=== PATIENT | male | born 1955 | race Caucasian/White ===

== ENCOUNTER → 2018-09-14 | Outpatient (CLI) | payer OTHER ==
[~2018-09-14] VITALS: Ht 177.8 cm; Wt 96.2 kg
[~2018-09-14] MED LIST: ADENOSINE 81 MG in GIVE UN-DILUTED 0 ML IV ONE; ADENOSINE 90 MG/30 ML INJ IV ONE; CARV6.2551 PO; DOXA4TAB40 PO; DULO30CA2 PO; FLU05NSL; FUR40T PO; LIS10T PO; OXC300T PO; POT10T PO; TAMS0.4C36 PO; WARF2.5T39 PO; WARF4TAB33 PO
== END | disposition home or self-care (01) ==
LOC: Rad HDHVI 08:05
PROVIDERS: ATTEND Internal Medicine Cardiovascular Disease
DX: I25.5 Ischemic cardiomyopathy (principal); E78.5 Hyperlipidemia, unspecified; I11.0 Hypertensive heart disease with heart failure; I50.23 Acute on chronic systolic (congestive) heart failure; I20.0 Unstable angina; R94.31 Abnormal electrocardiogram [ECG] [EKG]
CPT/HCPCS: 78452; 93005; 96374; 96375; A9500; J0153

== ENCOUNTER → 2019-02-09 | Outpatient (CLI) | payer OTHER ==
[~2019-02-09] MED LIST changes: -ADENOSINE 81 MG in GIVE UN-DILUTED 0 ML IV ONE; -ADENOSINE 90 MG/30 ML INJ IV ONE; -DOXA4TAB40 PO; +DOXA4TAB5 PO
== END | disposition home or self-care (01) ==
LOC: CT 10:06
DX: M48.02 Spinal stenosis, cervical region (principal); M50.20 Other cervical disc displacement, unspecified cervical region; M25.78 Osteophyte, vertebrae; M12.88 Other specific arthropathies, not elsewhere classified, other specified site
CPT/HCPCS: 72125

== ENCOUNTER → 2019-04-09 | Day surgery (SDC) | payer OTHER ==
[~2019-04-09] VITALS: Ht 177.8 cm; Wt 96.2 kg
[~2019-04-09] MED LIST changes: +ALBUAER3 IN; +CARV25TA55 PO; +DIP005TP TOP; +DULO60CA PO; +FINA5TAB4 PO; +FLUMAZENIL 0.1 MG/ML INJ 10ML MDV IV ONE; +FURO20TA3 PO; +HYDR39SU2 RE; +MOME100A INH; +NALOXONE HCL 0.4 MG/ML VIAL ONE; +NITR0.4S29 SL; +SACU1TAB7 PO; +SIME1CHW14 PO; +SODIUM CHLORIDE LOCK 10 ML ONE; +WARF1TAB36 PO; +diphenhdrAMINE HCL 50 MG/1 ML VL ONE; +hydrALAZINE HCL 20 MG/ML VL ONE
[2019-04-09 07:42] LABS: Basophils # (auto) 0.1 uL; Basophils % (auto) 1.4 % (0.0-2.0); Eosinophils # (auto) 0.1 uL; Eosinophils % (auto) 1.5 % (0.0-7.0); Hematocrit 39.9 % (41.0-53.0); Hemoglobin 13.8 g/dL (13.5-17.5); Lymphocytes # (auto) 1.2 uL; Lymphocytes % (auto) 29.4 % (10.0-50.0); Mean Corpuscular Hemoglobin 32.3 pg (28.0-32.0); Mean Corpuscular Hgb Conc. 34.6 g/dL (32.0-36.0); Mean Corpuscular Volume 93.3 fL (80.0-100.0); Monocytes # (auto) 0.4 uL; Monocytes % (auto) 11.1 % (0.0-12.0); Neutrophils # (auto) 2.3 uL; Neutrophils % (auto) 56.6 % (37.0-80.0); Nucleated Red Blood Cells % 0.2 %; Platelet Count (auto) 198 10^3/uL (140-450); Red Blood Cells 4.28 10^6/uL (4.5-5.90)
[2019-04-09 07:53] LABS: INR 1.09 (0.9-1.15); Partial Thromboplastin Time 29.6 sec (23.64-32.05)
[2019-04-09] MEDS: fentaNYL CITRATE 100 MCG/2 ML VL ONE ×2 (09:49→09:52)
[2019-04-09] MEDS: MIDAZOLAM HCL 5 MG/ML-1ML VIAL ONE ×2 (09:49→09:52)
[2019-04-09 10:44] VITALS: BP 150/92
== END | disposition home or self-care (01) ==
LOC: GI 06:42
PROVIDERS: ATTEND Internal Medicine Gastroenterology
DX: K62.5 Hemorrhage of anus and rectum (principal); K64.8 Other hemorrhoids; J44.9 Chronic obstructive pulmonary disease, unspecified; I11.0 Hypertensive heart disease with heart failure; I50.9 Heart failure, unspecified; Z95.810 Presence of automatic (implantable) cardiac defibrillator; Z95.2 Presence of prosthetic heart valve; Z79.899 Other long term (current) drug therapy; Z87.891 Personal history of nicotine dependence
CPT/HCPCS: 36415; 45378; 85025; 85610; 85730; J0360; J1200; J2250; J3010; J7030; 99152; 99153

== ENCOUNTER 2019-05-06 07:05 | Day surgery (SDC) | payer OTHER ==
[~2019-05-06] VITALS: Ht 177.8 cm; Wt 96.2 kg
[~2019-05-06 07:05] MED LIST changes: -CARV6.2551 PO; -DOXA4TAB5 PO; -DULO30CA2 PO; -FINA5TAB4 PO; -FLUMAZENIL 0.1 MG/ML INJ 10ML MDV IV ONE; -FUR40T PO; -LIS10T PO; -NALOXONE HCL 0.4 MG/ML VIAL ONE; -POT10T PO; -SODIUM CHLORIDE LOCK 10 ML ONE; -TAMS0.4C36 PO; -WARF2.5T39 PO; -WARF4TAB33 PO; -diphenhdrAMINE HCL 50 MG/1 ML VL ONE; -hydrALAZINE HCL 20 MG/ML VL ONE
[2019-05-06] MEDS ORDERED: LIDOCAINE 2%HCL (LOCAL ANESTH.) INJ 20ML MDV ONE ×2 (07:25→10:23)
[2019-05-06] MEDS ORDERED: IOHEXOL 350 MG/ML 100ML IJ ONE ×3 (07:25→10:23)
[2019-05-06 07:56] LABS: Basophils # (auto) 0 uL; Basophils % (auto) 1.3 % (0.0-2.0); Eosinophils # (auto) 0.1 uL; Hematocrit 38.2 % (41.0-53.0); Hemoglobin 12.9 g/dL (13.5-17.5); Lymphocytes # (auto) 1.1 uL; Lymphocytes % (auto) 32.8 % (10.0-50.0); Mean Corpuscular Hemoglobin 32.1 pg (28.0-32.0); Mean Corpuscular Hgb Conc. 33.8 g/dL (32.0-36.0); Mean Corpuscular Volume 94.9 fL (80.0-100.0); Monocytes # (auto) 0.4 uL; Neutrophils # (auto) 1.7 uL; Neutrophils % (auto) 50.9 % (37.0-80.0); Nucleated Red Blood Cells % 0.1 %; Platelet Count (auto) 232 10^3/uL (140-450); Red Blood Cells 4.03 10^6/uL (4.5-5.90); Red Cell Distribution Width 14.7 % (11.8-14.3); White Blood Cell 3.3 10^3/uL (4.4-10.8)
[2019-05-06 08:12] LABS: INR 1.08 (0.9-1.15)
[2019-05-06 08:13] LABS: BUN/Creatinine Ratio 13.1; Calcium 8.6 mg/dL (8.5-10.1); Potassium 3.9 mmol/L (3.5-5.1)
[2019-05-06] MEDS ORDERED: ANGIOMAX 250 MG VIAL IV ONE ×2 (08:47→10:34)
[2019-05-06] MEDS ORDERED: MIDAZOLAM HCL 1MG/1ML-2 ML VIAL ONE (08:48)
[2019-05-06] MEDS ORDERED: SODIUM CHL 0.9% 50 ML ONE ×2 (08:48→10:34)
[2019-05-06] MEDS ORDERED: fentaNYL CITRATE 100 MCG/2 ML VL ONE (08:48)
[2019-05-06] MEDS ORDERED: ACETAMINOPHEN 500 MG TAB PO PRN (11:15)
== END 2019-05-06 12:56 | disposition home or self-care (01) ==
LOC: CATH 07:05
PROVIDERS: ATTEND Internal Medicine Cardiovascular Disease
DX: I42.0 Dilated cardiomyopathy (principal); I11.0 Hypertensive heart disease with heart failure; I50.9 Heart failure, unspecified; J44.9 Chronic obstructive pulmonary disease, unspecified; Z95.810 Presence of automatic (implantable) cardiac defibrillator; Z79.01 Long term (current) use of anticoagulants; Z79.899 Other long term (current) drug therapy
CPT/HCPCS: 36415; 71045; 80048; 85025; 85610; 93458; C1760; C1894; J0583; J1644; J2250; J3010; J7030; Q9967; 99152; 99153

== ENCOUNTER → 2019-09-15 | Outpatient (CLI) | payer OTHER ==
[~2019-09-15] MED LIST changes: +IOHEXOL 300 MG/ML 100ML BOTTLE IJ ONE
[2019-09-15 09:06] LABS: BUN/Creatinine Ratio 12.4; Potassium 4.8 mmol/L (3.5-5.1)
== END | disposition home or self-care (01) ==
LOC: CT 08:06
DX: I51.7 Cardiomegaly (principal); J90 Pleural effusion, not elsewhere classified; J44.9 Chronic obstructive pulmonary disease, unspecified
CPT/HCPCS: 36415; 71275; 80048; Q9967

== ENCOUNTER 2019-12-14 16:47 | Inpatient (IN) | payer OTHER ==
[~2019-12-14] VITALS: Ht 177.8 cm; Wt 105.1 kg
[~2019-12-14 16:47] MED LIST changes: -IOHEXOL 300 MG/ML 100ML BOTTLE IJ ONE
[2019-12-14] MEDS ORDERED: SODIUM CHLORIDE 0.9% 1,000 ML IVB ONE (17:47)
[2019-12-14] MEDS ORDERED: MORPHINE SULFATE 4 MG/ML SYR/VIAL IV ONE (18:00)
[2019-12-14] MEDS ORDERED: ONDANSETRON HCL 4 MG/2 ML VIAL IV ONE (18:00)
[2019-12-14 19:52] LABS: White Blood Cell 4.1 10^3/uL (4.4-10.8)
[2019-12-14 19:53] LABS: Red Blood Cells 4.48 10^6/uL (4.5-5.90)
[2019-12-14 19:54] LABS: Hematocrit 43.6 % (41.0-53.0); Hemoglobin 14.8 g/dL (13.5-17.5); Mean Corpuscular Hgb Conc. 33.9 g/dL (32.0-36.0); Mean Corpuscular Volume 97.3 fL (80.0-100.0); Platelet Count (auto) 170 10^3/uL (140-450); Red Cell Distribution Width 14.5 % (11.8-14.3)
[2019-12-14 19:56] LABS: Band Neutrophils % (manual) 0; Basophils % (manual) 0 (0.0-2.0); Blast Cells 0; Eosinophils % (manual) 0 (0-7); Metamyelocytes % 0; Myelocytes % 0; Promyelocytes % 0; Reactive Lymphocytes 0
[2019-12-14 19:58] LABS: Albumin 3.9 g/dL (3.4-5.0); Calcium 8.9 mg/dL (8.5-10.1); Potassium 4.5 mmol/L (3.5-5.1)
[2019-12-14 20:01] LABS: BUN/Creatinine Ratio 11.3
[2019-12-14 20:04] LABS: Bilirubin, Total 0.4 mg/dL (0.2-1.0); Total Protein 8.9 g/dL (6.4-8.2)
[2019-12-14 20:59] LABS: Lymphocytes % (manual) 32 (10.0-50.0); Monocytes % (manual) 16 (0-12)
[2019-12-14] MEDS ORDERED: ONDANSETRON HCL 4 MG/2 ML VIAL IV PRN (21:45)
[2019-12-14] MEDS ORDERED: HYDROcodone-ACET 10/325MG TAB PO PRN (21:45)
[2019-12-14] MEDS ORDERED: ALBUTEROL SULF HFA 90MCG INH 200DOSE IN PRN (21:45)
[2019-12-14] MEDS ORDERED: WARFARIN SODIUM 2 MG TAB PO SCH (22:30)
[2019-12-14 22:44] LABS: INR 1.04 (0.9-1.15); Partial Thromboplastin Time 32.9 sec (23.0-31.2)
[2019-12-14] MEDS ORDERED: ALBUTEROL SULF 2.5 MG/0.5ML(0.5%) NEB SOLN NEB PRN (23:15)
[2019-12-14] MEDS: SACUBITRIL-VALSARTAN 24mg/26mg TAB PO SCH (23:59)
[2019-12-14] MEDS: OXcarbazepine 300 MG TAB PO SCH (23:59)
[2019-12-14] MEDS: DULoxetine HCL 30 MG CAP PO SCH (23:59)
[2019-12-14] MEDS: PANTOPRAZOLE 40 MG/10 ML VIAL INJ IV SCH (23:59)
[2019-12-15] VITALS (8 sets, daily range): BP systolic 112–150; BP diastolic 66–90
[2019-12-15] MEDS: CARVEDILOL 12.5 MG TAB PO SCH ×3 (00:09→22:15)
--- NOTE | 2019-12-15 01:45 | NUR ---
pt assessment and intake performed at this time. v/s WNL. pt in no distress at this time, covid nasal swab performed and sent to lab.
--- NOTE | 2019-12-15 02:31 | NUR ---
Admitting note pt arrived to room at 0105, no report given to this nurse from any department of hospital. pt arrived in wheel chair with [facility] staff at his side x2. pt is AAOx4, to person, place, time and situation. pt shows no s/s of distress at time of admission. bed in lowest and locked position with rails up x2. pt requesting to eat, brought pt a clear jello and apple juice, per the diet order in place. will continue to monitor pt Q1H and t/o shift/PRN. pt oriented to use of call light for assistance and verbally agrees to do so.
[2019-12-15] MEDS: D5W/SOD CHL 0.45% 1,000 ML IV SCH ×4 (03:52→17:45)
[2019-12-15 06:04] LABS: Basophils # (auto) 0 10 ^3/uL (0-0.2); Basophils % (auto) 0.7 % (0.0-2.0); Eosinophils # (auto) 0 10 ^3/uL (0-0.8); Hematocrit 37.7 % (41.0-53.0); Hemoglobin 12.8 g/dL (13.5-17.5); Lymphocytes # (auto) 0.9 10 ^3/uL (0.4-5.4); Lymphocytes % (auto) 32.5 % (10.0-50.0); Mean Corpuscular Hemoglobin 33.2 pg (28.0-32.0); Mean Corpuscular Hgb Conc. 33.9 g/dL (32.0-36.0); Monocytes # (auto) 0.4 10 ^3/uL (0-1.3); Monocytes % (auto) 14.2 % (0.0-12.0); Neutrophils # (auto) 1.5 10 ^3/uL (1.6-8.6); Neutrophils % (auto) 52.6 % (37.0-80.0); Nucleated Red Blood Cells % 0.5 %; Platelet Count (auto) 141 10^3/uL (140-450); Red Blood Cells 3.85 10^6/uL (4.5-5.90); Red Cell Distribution Width 14.6 % (11.8-14.3); White Blood Cell 2.8 10^3/uL (4.4-10.8)
[2019-12-15 06:12] LABS: Albumin 2.9 g/dL (3.4-5.0); Calcium 7.5 mg/dL (8.5-10.1); INR 1.09 (0.9-1.15); Potassium 3.8 mmol/L (3.5-5.1)
[2019-12-15 06:16] LABS: BUN/Creatinine Ratio 13.6; Bilirubin, Total 0.2 mg/dL (0.2-1.0); Total Protein 6.8 g/dL (6.4-8.2)
--- NOTE | 2019-12-15 06:26 | NUR ---
pt asleep, resting comfortably in bed. no s/s of distress or pain noted at this time. proson staff at bedside of pt t/o shift. will continue to monitor Q1H and PRN
--- NOTE | 2019-12-15 07:17 | NUR ---
End of shift Report given to day shift RNDeb. notified RN of morning labs.
[2019-12-15] MEDS: SACUBITRIL-VALSARTAN 24mg/26mg TAB PO SCH ×3 (10:00→22:15)
[2019-12-15] MEDS: OXcarbazepine 300 MG TAB PO SCH ×2 (10:00→22:16)
[2019-12-15] MEDS: PANTOPRAZOLE 40 MG/10 ML VIAL INJ IV SCH ×2 (10:10→22:13)
--- NOTE | 2019-12-15 10:50 | NUR ---
Respiratory note: PT ASSESSED FOR PRN MN TX. HR 72, RR 18, POX 98% ON 2L NC, BS ARE CLEAR/DIMINISHED. NO SOB OR DISTRESS NOTED. PT WAS NOTIFY TO HAVE RN PAGED IF MN TX WAS NEEDED.
[2019-12-15] MEDS: HYDROcodone-ACET 10/325MG TAB PO PRN ×2 (10:56→18:44)
[2019-12-15] MEDS ORDERED: WARFARIN SODIUM 2.5 MG TAB PO ONE (17:00)
[2019-12-15] MEDS: WARFARIN SODIUM 2 MG TAB PO SCH (17:00)
[2019-12-15] MEDS: WARFARIN SODIUM 5 MG TAB PO SCH (17:00)
--- NOTE | 2019-12-15 18:45 | NUR ---
Spoke to MD MD Donaldson aware of patient's status including abd pain. Patient states he does not take coumadin anymore and refused at this time. Awaiting further orders at this time. Will cont care
--- NOTE | 2019-12-15 19:09 | NUR ---
Patient care endorsed endorsed care to Carlene rn, patient laying in bed in no acute distress or sob. Guards at bedside.
--- NOTE | 2019-12-15 19:29 | NUR ---
RT NOTE PT WAS SEEN BY RT FOR PRN HHN TX ASSESSMENT. PT STATES NO TREATMENT NEEDED AT THIS TIME. HR 71, RR 16, BS CLEAR/DIM, POX 93% ON 1L NASAL CANNULA AND APPEARS TO TOLERATE WELL. CONT ORDERED Addendum: 12/15/19 at 2339 by Kailyn Muse RT Amended: Links added.
[2019-12-15] MEDS: PIPERACILLIN-TAZO 4.5GM 100 ML IV SCH (22:14)
[2019-12-15] MEDS: DULoxetine HCL 30 MG CAP PO SCH (22:15)
[2019-12-16] MEDS: D5W/SOD CHL 0.45% 1,000 ML IV SCH ×3 (04:24→13:45)
[2019-12-16 04:57] VITALS: BP 90/57
[2019-12-16] MEDS: HYDROcodone-ACET 10/325MG TAB PO PRN ×3 (05:28→19:46)
[2019-12-16] MEDS: PIPERACILLIN-TAZO 4.5GM 100 ML IV SCH ×4 (05:54→23:01)
[2019-12-16 06:13] LABS: Urine Bacteria NONE SEEN /hpf (None Seen); Urine Blood Negative /uL (Negative); Urine Specific Gravity 1.024 (1.001-1.035); Urine WBC <1 /hpf (0 - 3)
[2019-12-16 07:02] LABS: Basophils # (auto) 0 10 ^3/uL (0-0.2); Basophils % (auto) 0.5 % (0.0-2.0); Eosinophils # (auto) 0 10 ^3/uL (0-0.8); Eosinophils % (auto) 0.1 % (0.0-7.0); Hematocrit 42.2 % (41.0-53.0); Lymphocytes % (auto) 36.1 % (10.0-50.0); Mean Corpuscular Hemoglobin 32.9 pg (28.0-32.0); Mean Corpuscular Hgb Conc. 33.1 g/dL (32.0-36.0); Mean Corpuscular Volume 99.6 fL (80.0-100.0); Monocytes # (auto) 0.4 10 ^3/uL (0-1.3); Monocytes % (auto) 12.7 % (0.0-12.0); Neutrophils # (auto) 1.4 10 ^3/uL (1.6-8.6); Neutrophils % (auto) 50.6 % (37.0-80.0); Nucleated Red Blood Cells % 0.6 %; Platelet Count (auto) 133 10^3/uL (140-450); Red Blood Cells 4.24 10^6/uL (4.5-5.90); Red Cell Distribution Width 14.4 % (11.8-14.3); White Blood Cell 2.9 10^3/uL (4.4-10.8)
[2019-12-16 07:16] LABS: INR 1.03 (0.9-1.15)
--- NOTE | 2019-12-16 07:30 | NUR ---
Opening shift note Assumed care of patient from NOC RN. Patient is AOx4 no s/s of distress or shortness of breath noted. Bed is in lowest locked position, side rails up x2, call light is within reach, and 2 guards are present at bedside. Updated patient on plan of care and patient verbalized understanding. Will continue to monitor qh1r and PRN.
[2019-12-16 08:58] VITALS: BP 119/58
--- NOTE | 2019-12-16 09:20 | NUR ---
Patient back on unit VS Vitals are 82/49, 95% on 3L via nasal cannula and 68bpm. Patient is diaphoretic, SOB. Vitals at 0925 82/49, 95% on 3L via nasal cannula and 68bpm Blood sugar was 123. Patient is AOx4, complaint of SOB. Legs were elevated and placed on IV fluids. Will continue to monitor.
--- NOTE | 2019-12-16 09:49 | NUR ---
Paged attending Paged Dr. Monreal regarding change in patient status. Left call back message and awaiting call back.
[2019-12-16] MEDS: SACUBITRIL-VALSARTAN 24mg/26mg TAB PO SCH ×3 (10:00→23:02)
[2019-12-16] MEDS: CARVEDILOL 12.5 MG TAB PO SCH ×2 (10:00→23:02)
[2019-12-16] MEDS: PANTOPRAZOLE 40 MG/10 ML VIAL INJ IV SCH ×2 (10:55→23:01)
[2019-12-16] MEDS: OXcarbazepine 300 MG TAB PO SCH ×2 (10:57→23:02)
--- NOTE | 2019-12-16 12:35 | NUR ---
Paged Pagemichael Monreal regarding change in patient status. Left message with MDs exchange. Awaiting call back.
--- NOTE | 2019-12-16 12:54 | NUR ---
Physician rounding Dr. Monreal at nurses station, updated MD on patient status. No new orders received at this time. Will continue to monitor.
[2019-12-16 13:00] VITALS: BP 116/59
--- NOTE | 2019-12-16 15:13 | NUR ---
report given to receiving RN YESENIA Allyson at lunch, report given to YESENIA Spaulding.
--- NOTE | 2019-12-16 16:00 | NUR ---
Patient taken to [facility] for COVID care, no s/s of distress noted at time of transfer.
--- NOTE | 2019-12-16 16:00 | NUR ---
PT ARRIVED FROM [facility] VIA HOSPITAL BED WITH DRAKE PATTERSON, AND A CONSTRUCTION PERSON, PT IS ALERT ORIENTED X4, RESTING IN BED COMFORTABLY, A METAL HAND CUFF NOTED AT LEFT WRIEST, LARGE FIRM ABDOMEN WITH HYPO ABDOMINAL SOUNDS, PT IS BIG AND TALL, ABLE TO SELF REPOSITION NEEDED, PT IS FULLY AWARE THAT HE IS POSITIVE FOR COVID 19 AND CONTACT ISOLATION PRACTICE WILL BE IN PRACTICE AT ALL TIMES, ZOSYN INTRAVENOUS CONTINUE INFUSING, ROOM ORIENTATION GIVEN TO PT, CALL LIGHT WITHIN REACH.
[2019-12-16 17:00] VITALS: BP 94/56
[2019-12-16] MEDS ORDERED: WARFARIN SODIUM 2 MG TAB PO SCH (17:00)
[2019-12-16] MEDS ORDERED: WARFARIN SODIUM 2.5 MG TAB PO SCH (17:00)
--- NOTE | 2019-12-16 18:41 | NUR ---
PT CONTINUE STABLE, CONTINUE MONITORING, SITTING UP EATING DINNER
--- NOTE | 2019-12-16 19:30 | NUR ---
Opening Shift Note Assumed care of patient, awake and alert. No S/S of distress/SOB or pain. Guards at bedside. Instructed on POC and to call for assist PRN, will continue to monitor for changes Q1hr and PRN.
[2019-12-16 22:00] VITALS: BP 129/70
--- NOTE | 2019-12-16 22:00 | NUR ---
Patient requested to take a shower. Patient provided towels and gown, IV wrapped, and linens changed. Medication will be given after showering.
--- NOTE | 2019-12-16 22:31 | NUR ---
Respiratory note: ASSESSED PT FOR PRN MED NEB AT THIS TIME, NO RESP DISTRESS NOTED, NO TX INDICATED, PULSE OX 91% ON RA, HR 87, RR 18
[2019-12-16] MEDS: DULoxetine HCL 30 MG CAP PO SCH (23:01)
[2019-12-16] MEDS: methylPREDNISolone SOD SUCC 125 MG/2 ML VL IV SCH (23:01)
[2019-12-17] MEDS: D5W/SOD CHL 0.45% 1,000 ML IV SCH ×4 (00:30→17:09)
[2019-12-17] MEDS: HYDROcodone-ACET 10/325MG TAB PO PRN ×3 (04:06→18:05)
[2019-12-17 05:00] VITALS: BP 102/69
[2019-12-17] MEDS: PIPERACILLIN-TAZO 4.5GM 100 ML IV SCH ×3 (05:42→21:39)
--- NOTE | 2019-12-17 08:04 | NUR ---
OPENING SHIFT NOTE Assumed care of patient. PT is awake and a&ox4. No SOB or s/s of distress at this time. Guards are at bedside. Instructed on plan of care and encouraged patient to call for assistance as needed, patient verbalized understanding. Bed is locked in lowest position, side rails x 2 are up, call light is within reach, and bed alarm is on.
[2019-12-17 08:59] LABS: INR 1.08 (0.9-1.15)
[2019-12-17 09:00] VITALS: BP 94/70
[2019-12-17] MEDS: SACUBITRIL-VALSARTAN 24mg/26mg TAB PO SCH ×2 (10:00→21:40)
[2019-12-17] MEDS: CARVEDILOL 12.5 MG TAB PO SCH ×2 (10:00→21:40)
[2019-12-17] MEDS: methylPREDNISolone SOD SUCC 125 MG/2 ML VL IV SCH ×2 (10:51→21:39)
[2019-12-17] MEDS: PANTOPRAZOLE 40 MG/10 ML VIAL INJ IV SCH ×2 (10:51→21:39)
[2019-12-17] MEDS: cefTRIAXone 1GM/50ML D5W 50 ML IV SCH (10:52)
[2019-12-17] MEDS: AZITHROMYCIN 250 MG TAB PO SCH (10:52)
[2019-12-17] MEDS: OXcarbazepine 300 MG TAB PO SCH ×2 (10:54→21:40)
[2019-12-17] MEDS: ZINC SULFATE 220mg CAP or TAB PO SCH (10:55)
[2019-12-17 13:00] VITALS: BP 118/60
--- NOTE | 2019-12-17 14:48 | NUR ---
Nutrition Assessment Notes please see attached link for complete assessment Est energy needs ABW 92 [id number] kcal (23-25kcal/kg ABW) Est protein needs: 92-101g (1-1.1g/kg ABW) Will reassess prn. Addendum: 12/17/19 at [address] Amended: Links added.
[2019-12-17 17:00] VITALS: BP 124/90
[2019-12-17] MEDS: WARFARIN SODIUM 2 MG TAB PO SCH (17:10)
[2019-12-17] MEDS: WARFARIN SODIUM 5 MG TAB PO SCH (17:10)
--- NOTE | 2019-12-17 18:07 | NUR ---
ROUNDED ON PT. INSTRUCTED TO KEEP PT ON RA. INSTRUCTED PT TO NOTIFY STAFF OF ANY S/S OF SOB. WILL CONTINUE TO MONITOR.
[2019-12-17] MEDS: APIXABAN 2.5 MG TAB PO SCH (18:19)
--- NOTE | 2019-12-17 18:19 | NUR ---
ADMINISTERED PM ELIQUIS PER MD INSTRUCTIONS. COUMADIN DISCONTINUED.
--- NOTE | 2019-12-17 19:18 | NUR ---
Respiratory note: PT RECEIVED ON RA AT THIS TIME. NO RESP DISTRESS NOTED. PRN TX NOT INDICATED. SPO2 92%, HR 71, RR 18. PT IS AWARE TO CALL FOR PRN IF SOB/WHEEZING.
--- NOTE | 2019-12-17 20:20 | NUR ---
open note assumed care of pt upon entering room pt awake, alert and oriented x4. pt on room air no distress noted or expressed. pt has guards at bedside. pt oriented to this nurse, pt updated on plan of care. bed locked, low and 2x rails up. call light in reach, pt encouraged to call as needed. this nurse will continue to monitor.
[2019-12-17] MEDS: DULoxetine HCL 30 MG CAP PO SCH (21:39)
[2019-12-17 21:42] VITALS: BP 115/74
[2019-12-18] VITALS (7 sets, daily range): BP systolic 100–138; BP diastolic 66–82
[2019-12-18] MEDS: HYDROcodone-ACET 10/325MG TAB PO PRN ×3 (01:09→23:07)
[2019-12-18] MEDS: D5W/SOD CHL 0.45% 1,000 ML IV SCH ×4 (02:01→23:03)
[2019-12-18] MEDS: PIPERACILLIN-TAZO 4.5GM 100 ML IV SCH ×3 (06:23→23:04)
--- NOTE | 2019-12-18 08:52 | NUR ---
pt. assessed, no resp. distress or sob noted. Bs. are clear, hr=62,rr=20,sp02=96% on ra. Addendum: 12/18/19 at 1600 by Felisha Santiago RT Amended: Links added.
[2019-12-18] MEDS: PANTOPRAZOLE 40 MG/10 ML VIAL INJ IV SCH ×2 (10:25→23:03)
[2019-12-18] MEDS: APIXABAN 2.5 MG TAB PO SCH ×2 (10:25→23:06)
[2019-12-18] MEDS: ZINC SULFATE 220mg CAP or TAB PO SCH (10:25)
[2019-12-18] MEDS: OXcarbazepine 300 MG TAB PO SCH ×2 (10:25→22:00)
[2019-12-18] MEDS: methylPREDNISolone SOD SUCC 125 MG/2 ML VL IV SCH ×2 (10:25→23:03)
[2019-12-18] MEDS: cefTRIAXone 1GM/50ML D5W 50 ML IV SCH (10:25)
[2019-12-18] MEDS: AZITHROMYCIN 250 MG TAB PO SCH (10:26)
[2019-12-18] MEDS: SACUBITRIL-VALSARTAN 24mg/26mg TAB PO SCH ×2 (10:26→23:06)
[2019-12-18] MEDS: CARVEDILOL 12.5 MG TAB PO SCH ×2 (10:27→23:05)
[2019-12-18] MEDS: DULoxetine HCL 30 MG CAP PO SCH (23:05)
[2019-12-18] MEDS: ASCORBIC ACID 500 MG TAB PO SCH (23:07)
[2019-12-19] MEDS: D5W/SOD CHL 0.45% 1,000 ML IV SCH ×4 (03:12→21:54)
[2019-12-19 05:30] VITALS: BP 137/82
[2019-12-19] MEDS: PIPERACILLIN-TAZO 4.5GM 100 ML IV SCH ×3 (06:31→21:55)
[2019-12-19] MEDS: HYDROcodone-ACET 10/325MG TAB PO PRN ×3 (06:32→21:57)
--- NOTE | 2019-12-19 07:25 | NUR ---
closing note. pt resting in semi fowlers with HOB at 30 degrees. respirations even and nonlabored on room air. no c/o pain or discomfort. endorsed care to day shift RN Will.
[2019-12-19 09:00] VITALS: BP 127/77
[2019-12-19] MEDS: cefTRIAXone 1GM/50ML D5W 50 ML IV SCH (10:43)
[2019-12-19] MEDS: PANTOPRAZOLE 40 MG/10 ML VIAL INJ IV SCH ×2 (10:43→21:54)
[2019-12-19] MEDS: methylPREDNISolone SOD SUCC 125 MG/2 ML VL IV SCH ×2 (10:43→21:54)
[2019-12-19] MEDS: AZITHROMYCIN 250 MG TAB PO SCH (10:45)
[2019-12-19] MEDS: ZINC SULFATE 220mg CAP or TAB PO SCH (10:45)
[2019-12-19] MEDS: CARVEDILOL 12.5 MG TAB PO SCH ×2 (10:45→21:55)
[2019-12-19] MEDS: APIXABAN 2.5 MG TAB PO SCH ×2 (10:46→21:56)
[2019-12-19] MEDS: CHOLECALCIFEROL (VITD3) 2,000 UNIT CAP PO SCH (10:46)
[2019-12-19] MEDS: ASCORBIC ACID 500 MG TAB PO SCH ×2 (10:46→21:56)
[2019-12-19] MEDS: SACUBITRIL-VALSARTAN 24mg/26mg TAB PO SCH ×2 (10:46→21:56)
[2019-12-19] MEDS: OXcarbazepine 300 MG TAB PO SCH ×2 (10:47→21:56)
[2019-12-19] MEDS: THIAMINE HCL 100 MG TAB PO SCH (10:47)
[2019-12-19 13:00] VITALS: BP 119/76
--- NOTE | 2019-12-19 14:57 | NUR ---
Nutrition Followup Note Wt 105.1kg Pt is covid positive in the COVID wing. PT has a regular diet with fair appetite aeb pt with avg po intake of 67% x 3 days per RN note. Est energy needs ABW 92 [id number] kcal (23-25kcal/kg ABW) Est protein needs: 92-101g (1-1.1g/kg ABW) Will reassess prn. Labs: Pt with no new labs since 12/14, BUN 20 H CREAT 1.47 H GLU 108 H CA 7.5 L ALB 2.9 L BM: Pt with 1 BM 12/18 per RN note Skin: BS 21 low risk, full details in [employer] note PES: Altered nutrition related lab vlaues r.t current chronic medical condition aeb elev RFT hyperglycemia, hypocalcemia mod hypoalb Decreased nutrient needs r/t adiposity aeb pt`s high BMI of 34.5 kg/m2 Comments 1) refer to [facility] dietitan on DC2) continue current plan of care Expected Outcomes/Goals: pt will have improved labs pt will consume >75% of meals f/u mod 3-5 days
[2019-12-19 16:37] VITALS: BP 130/78
[2019-12-19] MEDS ORDERED: WARFARIN SODIUM 2 MG TAB PO SCH (17:00)
[2019-12-19] MEDS ORDERED: WARFARIN SODIUM 2.5 MG TAB PO SCH (17:00)
[2019-12-19 21:37] VITALS: BP 136/91
[2019-12-19] MEDS: DULoxetine HCL 30 MG CAP PO SCH (21:55)
--- NOTE | 2019-12-19 22:00 | NUR ---
patient took shower.
--- NOTE | 2019-12-19 22:10 | NUR ---
IV leaking, removed. catheter remained whole upon removal. pt tolerated well.
--- NOTE | 2019-12-19 22:15 | NUR ---
New IV placed at right wrist 22g 1 attempt, pt tolerated well.
[2019-12-20 05:00] VITALS: BP 121/80
[2019-12-20] MEDS: D5W/SOD CHL 0.45% 1,000 ML IV SCH ×3 (05:26→17:45)
[2019-12-20] MEDS: PIPERACILLIN-TAZO 4.5GM 100 ML IV SCH ×2 (05:42→14:42)
--- NOTE | 2019-12-20 07:32 | NUR ---
closing note pt resting in semi fowlers with HOB at 30 degrees. no s/s of pain or discomfort. endorsed care to day shift RN.
--- NOTE | 2019-12-20 07:40 | NUR ---
opening note Assumed care of NOC RN. Patient is AOx4 no s/s of distress noted. Bed is in lowest locked position, side rails up x2, call light is within reach and guard at bedside. Updated patient on plan of care and patient verbalized understanding. Will continue to monitor q1hr and PRN.
[2019-12-20 08:00] VITALS: BP 136/90
[2019-12-20] MEDS: methylPREDNISolone SOD SUCC 125 MG/2 ML VL IV SCH (09:59)
[2019-12-20] MEDS: PANTOPRAZOLE 40 MG/10 ML VIAL INJ IV SCH (09:59)
[2019-12-20] MEDS: ZINC SULFATE 220mg CAP or TAB PO SCH (10:00)
[2019-12-20] MEDS: THIAMINE HCL 100 MG TAB PO SCH (10:01)
[2019-12-20] MEDS: CARVEDILOL 12.5 MG TAB PO SCH (10:01)
[2019-12-20] MEDS: APIXABAN 2.5 MG TAB PO SCH (10:01)
[2019-12-20] MEDS: OXcarbazepine 300 MG TAB PO SCH (10:02)
[2019-12-20] MEDS: SACUBITRIL-VALSARTAN 24mg/26mg TAB PO SCH (10:02)
[2019-12-20] MEDS: ASCORBIC ACID 500 MG TAB PO SCH (10:02)
[2019-12-20] MEDS: AZITHROMYCIN 250 MG TAB PO SCH (10:02)
[2019-12-20] MEDS: CHOLECALCIFEROL (VITD3) 2,000 UNIT CAP PO SCH (10:02)
[2019-12-20] MEDS: HYDROcodone-ACET 10/325MG TAB PO PRN (10:16)
[2019-12-20 12:00] VITALS: BP 155/98
--- NOTE | 2019-12-20 15:57 | NUR ---
patient requested to take shower, supplied patient with towels and new gown.
--- NOTE | 2019-12-20 16:40 | NUR ---
Physician rounding Dr. Monreal at nurses station. New orders received. Will follow thorough.
[2019-12-20 17:00] VITALS: BP 149/98
[2019-12-20 17:06] VITALS: BP 149/98
--- NOTE | 2019-12-20 18:15 | NUR ---
Discharge note Discharge instructions given as ordered. Encourage to follow up with senior care MD as instructed. All questions and concerns addressed. Patient verbalized understanding. IV removed with catheter intact, pressure dressing applied. Patient care endorsed to guards at bedside.
== END 2019-12-20 18:15 | DRG 177 ==
LOC: EEVIPCON 16:47 → ER 16:47 → OVERFLOW 16:48 → WEST WING 12-15 01:05 → EAST 12-16 16:57
PROVIDERS: ADMIT Internal Medicine; ATTEND Internal Medicine
DX: U07.1 COVID-19 (principal); J96.01 Acute respiratory failure with hypoxia; J98.11 Atelectasis; I42.9 Cardiomyopathy, unspecified; I50.9 Heart failure, unspecified; K59.00 Constipation, unspecified; E78.5 Hyperlipidemia, unspecified; I11.0 Hypertensive heart disease with heart failure; J44.9 Chronic obstructive pulmonary disease, unspecified; N40.0 Benign prostatic hyperplasia without lower urinary tract symptoms; D18.00 Hemangioma unspecified site; S30.1XXA Contusion of abdominal wall, initial encounter; X58.XXXA Exposure to other specified factors, initial encounter; Y93.89 Activity, other specified; Z80.9 Family history of malignant neoplasm, unspecified; Z95.2 Presence of prosthetic heart valve; Z95.810 Presence of automatic (implantable) cardiac defibrillator; Y92.89 Other specified places as the place of occurrence of the external cause; Y99.8 Other external cause status
CPT/HCPCS: 36415; 71045; 71101; 74176; 76700; 80053; 81001; 82150; 82728; 82962; 83605; 83690; 85007; 85025; 85027; 85379; 85610; 85730; 86141; 87081; 87086; 93005; 93970; 94640; 94760; 96365; 96366; 96375; C9113; G0378; J0696; J2405; J2543

== ENCOUNTER 2019-12-23 10:51 | Inpatient (IN) | payer OTHER ==
[~2019-12-23] VITALS: Ht 177.8 cm; Wt 95.3 kg
[2019-12-23] MEDS ORDERED: ONDANSETRON HCL 4 MG/2 ML VIAL IV ONE (11:15)
[2019-12-23] MEDS ORDERED: DexAMETHasone SOD PHOS 10MG/1ML VIAL INJ IV ONE (11:15)
[2019-12-23] MEDS ORDERED: MORPHINE SULFATE 4 MG/ML SYR/VIAL IV ONE (11:15)
[2019-12-23] MEDS ORDERED: cefTRIAXone 1GM/50ML D5W 50 ML IV ONE ×2 (11:15→11:16)
[2019-12-23] MEDS ORDERED: DOXYCYCLINE 100 MG TAB/CAP PO ONE (11:15)
[2019-12-23] MEDS ORDERED: DexAMETHasone SOD PHOS 10MG/1ML VIAL INJ ONE (11:16)
[2019-12-23 11:34] LABS: Hematocrit 46.2 % (41.0-53.0); Hemoglobin 15.5 g/dL (13.5-17.5); Mean Corpuscular Hemoglobin 32.7 pg (28.0-32.0); Mean Corpuscular Hgb Conc. 33.6 g/dL (32.0-36.0); Mean Corpuscular Volume 97.3 fL (80.0-100.0); Platelet Count (auto) 270 10^3/uL (140-450); Red Blood Cells 4.75 10^6/uL (4.5-5.90); Red Cell Distribution Width 14.4 % (11.8-14.3); White Blood Cell 6.6 10^3/uL (4.4-10.8)
[2019-12-23 11:42] LABS: Basophils % (manual) 0 (0.0-2.0); Eosinophils % (manual) 0 (0-7); Myelocytes % 0; Promyelocytes % 0
[2019-12-23 11:43] LABS: Blast Cells 0; Reactive Lymphocytes 0
[2019-12-23 11:50] LABS: Albumin 2.6 g/dL (3.4-5.0); Anion Gap 7 (5-15); Blood Urea Nitrogen 27 mg/dL (7-18); Calcium 8.1 mg/dL (8.5-10.1); Carbon Dioxide 27 mmol/L (21-32); Chloride 101 mmol/L (98-107); Glucose 82 mg/dL (74-106); Magnesium 2.7 mg/dL (1.6-2.6); Sodium 135 mmol/L (136-145)
[2019-12-23 11:51] LABS: INR 1.09 (0.9-1.15); Partial Thromboplastin Time 29.9 sec (23.0-31.2)
[2019-12-23 11:59] LABS: Alanine Aminotransferase 34 U/L (16-61); Alkaline Phosphatase 69 U/L (45-117); Aspartate Aminotransferase 64 U/L (15-37); Bilirubin, Total 0.6 mg/dL (0.2-1.0); GFR African American 57 mL/min; GFR Non-African American 47 mL/min; Lactate Dehydrogenase 640 U/L (87-241); Total Protein 7.8 g/dL (6.4-8.2)
[2019-12-23 12:12] LABS: Band Neutrophils % (manual) 3; Lymphocytes % (manual) 14 (10.0-50.0); Metamyelocytes % 5; Monocytes % (manual) 11 (0-12)
[2019-12-23 14:59] LABS: Urine Bacteria NONE SEEN /hpf (None Seen); Urine Blood Negative /uL (Negative); Urine Hyaline Cast MANY /lpf (0 - 2); Urine Mucus FEW (None Seen); Urine Specific Gravity 1.025 (1.001-1.035); Urine WBC 2 /hpf (0 - 3)
[2019-12-23] MEDS ORDERED: D5W/SOD CHL 0.45% 1,000 ML IV ONE (16:45)
[2019-12-23] MEDS ORDERED: ALBUTEROL SULF 2.5 MG/0.5ML(0.5%) NEB SOLN NEB PRN (16:45)
[2019-12-23] MEDS ORDERED: MORPHINE SULF INJ 2 MG/ML SYRINGE 1ML IV PRN (16:45)
[2019-12-23] MEDS ORDERED: NITROGLYCERIN 0.4 MG SL TAB SL PRN (16:45)
--- NOTE | 2019-12-23 17:47 | NUR ---
MS admit from ER JONES,YASMEEN admitted to tele/MS after SBAR received. Patient oriented to Allyson Pepe, primary RN, unit, room, bed, and unit policies regarding patient care and visiting hours. Patient weighed by bedscale and encouraged to call if they need something. All questions and concerns addressed, patient verbalized understanding. Note: PT IS INMATE, GUARDS AT BED SIDE
[2019-12-23 18:00] VITALS: BP 126/91
--- NOTE | 2019-12-23 18:00 | NUR ---
PT ARRIVED FROM ER VIA WHEELCHAIR, ALERT ORIENTED X4, NO DISTRESS NOTED, TO ROOM 238, WAS ABLE TO GET OUT OF THE WHEELCHAIR AND GET IN BED, PATIENTS GUARDS APPLIED A METAL HAND CUFF ON HIS LEFT WRIEST, OXYGEN 2 L NC, PAIN 010, ROOM ORIENTATION GIVEN TO PT, CALL LIGHT WITHIN REACH
[2019-12-23 18:20] VITALS: BP 119/85
--- NOTE | 2019-12-23 18:20 | NUR ---
[facility] SWABS SENT TO LAB
--- NOTE | 2019-12-23 18:39 | NUR ---
PT CONTINUE STABLE, CONTINUE MONITORING
--- NOTE | 2019-12-23 19:46 | NUR ---
Opening Shift Note Assumed care of patient after receiving report. Patient is awake and alert with no S/S of distress/SOB or pain. Call light within reach, bed in lowest locked position x2 side rails, HOB semi fowlers. Instructed on POC and to call for assist PRN, will continue to monitor for changes Q1hr and PRN.
[2019-12-23 20:47] VITALS: BP 132/86
[2019-12-23] MEDS: CARVEDILOL 12.5 MG TAB PO SCH (22:15)
[2019-12-23] MEDS: APIXABAN 2.5 MG TAB PO SCH (22:15)
[2019-12-23] MEDS: methylPREDNISolone SOD SUCC 125 MG/2 ML VL IV SCH (22:15)
[2019-12-24 05:40] VITALS: BP 126/84
[2019-12-24 06:22] LABS: Potassium 4.7 mmol/L (3.5-5.1)
[2019-12-24 06:27] LABS: BUN/Creatinine Ratio 19.3; Calcium 7.7 mg/dL (8.5-10.1)
--- NOTE | 2019-12-24 06:53 | NUR ---
PT ASSESSED FOR PRN HHN TX. PT IS ON 4LNC, SPO2 93%, HR 67, RR 20. NO S/S OF RESPIRATORY DISTRESS. PRN TX NOT INDICATED AT THIS TIME. WILL CONTINUE TO MONITOR.
--- NOTE | 2019-12-24 07:30 | NUR ---
Opening Shift Note Assumed care of patient, awake and alert. No S/S of distress/SOB or pain. Instructed on POC and to call for assist PRN, will continue to monitor for changes Q1hr and PRN. Fall precautions in place per safety protocol.
[2019-12-24 09:11] VITALS: BP 125/85
[2019-12-24] MEDS: methylPREDNISolone SOD SUCC 125 MG/2 ML VL IV SCH ×2 (09:13→22:31)
[2019-12-24] MEDS: ZINC SULFATE 220mg CAP or TAB PO SCH (09:13)
[2019-12-24] MEDS: cefTRIAXone 1GM/50ML D5W 50 ML IV SCH (09:13)
[2019-12-24] MEDS: CARVEDILOL 12.5 MG TAB PO SCH ×2 (09:14→22:31)
[2019-12-24] MEDS: APIXABAN 2.5 MG TAB PO SCH ×2 (09:14→22:30)
[2019-12-24] MEDS: AZITHROMYCIN 250 MG TAB PO SCH (09:14)
[2019-12-24 12:44] VITALS: BP 136/80
[2019-12-24 17:25] VITALS: BP 116/77
[2019-12-24] MEDS: FUROSEMIDE 20 MG/2 ML VIAL IV SCH (17:54)
[2019-12-24] MEDS: POTASSIUM CHL 10 Meq TABLET PO SCH (22:30)
--- NOTE | 2019-12-24 22:41 | NUR ---
ASSESSMENT FOR PRN MED NEB TX. PT FOUND ON 4L NC, SPO2 NOTED AT 87%. PT PLACED ON 6L OXYMIZER AT 52%, SPO2 IMPROVED TO 92%. PT RESTING COMFORTABLY, NO RESPIRATORY DISTRESS NOTED. MED NEB TX NOT GIVEN AT THIS TIME, WILL CONTINUE TO MONITOR.
[2019-12-24 22:51] VITALS: BP 155/90
[2019-12-25 05:34] VITALS: BP 133/67
[2019-12-25] MEDS: FUROSEMIDE 20 MG/2 ML VIAL IV SCH ×2 (05:55→17:35)
[2019-12-25 05:56] LABS: Anion Gap 5 (5-15); BUN/Creatinine Ratio 24.5; Blood Urea Nitrogen 25 mg/dL (7-18); Calcium 7.8 mg/dL (8.5-10.1); Carbon Dioxide 28 mmol/L (21-32); Chloride 105 mmol/L (98-107); GFR African American 95 mL/min; GFR Non-African American 79 mL/min; Glucose 124 mg/dL (74-106); Potassium 5.2 mmol/L (3.5-5.1); Sodium 138 mmol/L (136-145)
--- NOTE | 2019-12-25 07:13 | NUR ---
closing note pt resting in semi fowlers with HOB at 30 degrees. respirations even and nonlabored on 5Lnc. no c/o pain or discomfort at this time. endorsed care to day shift YESENIA Sterling.
[2019-12-25 09:00] VITALS: BP 127/77
[2019-12-25] MEDS: methylPREDNISolone SOD SUCC 125 MG/2 ML VL IV SCH (09:20)
[2019-12-25] MEDS: cefTRIAXone 1GM/50ML D5W 50 ML IV SCH (09:20)
[2019-12-25] MEDS: ZINC SULFATE 220mg CAP or TAB PO SCH (09:20)
[2019-12-25] MEDS: AZITHROMYCIN 250 MG TAB PO SCH (09:21)
[2019-12-25] MEDS: CARVEDILOL 12.5 MG TAB PO SCH ×2 (09:21→21:36)
[2019-12-25] MEDS: APIXABAN 2.5 MG TAB PO SCH ×2 (09:21→21:36)
[2019-12-25] MEDS: POTASSIUM CHL 10 Meq TABLET PO SCH ×2 (09:21→21:36)
[2019-12-25 12:42] VITALS: BP 142/83
--- NOTE | 2019-12-25 15:15 | NUR ---
Pulmonology Consultation Dr. Kay at bed side. New orders received. Will carry out.
[2019-12-25 16:41] VITALS: BP 135/81
--- NOTE | 2019-12-25 19:10 | NUR ---
Opening Shift Note Assumed care of patient, awake, alert and oriented x4, on 3L of oxygen via NC with even and unlabored respirations, no S/S of distress/SOB or pain. Patient able to ambulate independently, bed in lowest locked position, side rails up x2, and call light within reach. Instructed on POC and to call for assist PRN, will continue to monitor for changes Q1hr and PRN.
[2019-12-25 21:30] VITALS: BP 138/86
--- NOTE | 2019-12-25 22:38 | NUR ---
Respiratory note: PT SEEN AND ASSESSED FOR PRN MED NEB TREATMENT AT 2238. TREATMENT IS NOT INDICATED AT THIS TIME. PT DENIES ANY RESPIRATORY DISTRESS. HR 75 RR 20 SP02 92% ON 5L NASAL CANNULA.
[2019-12-26 05:00] VITALS: BP 116/75
[2019-12-26 05:51] LABS: Calcium 8.2 mg/dL (8.5-10.1); Potassium 4.4 mmol/L (3.5-5.1)
[2019-12-26 05:53] LABS: BUN/Creatinine Ratio 22.6
[2019-12-26] MEDS: FUROSEMIDE 20 MG/2 ML VIAL IV SCH ×2 (06:00→18:09)
--- NOTE | 2019-12-26 06:44 | NUR ---
closing shift notes pt has no s/s of distress or pain at this time will endorse care to day shift RN
[2019-12-26 08:13] VITALS: BP 132/88
[2019-12-26] MEDS: cefTRIAXone 1GM/50ML D5W 50 ML IV SCH (09:31)
[2019-12-26] MEDS: APIXABAN 2.5 MG TAB PO SCH ×2 (09:31→22:28)
[2019-12-26] MEDS: AZITHROMYCIN 250 MG TAB PO SCH (09:31)
[2019-12-26] MEDS: ZINC SULFATE 220mg CAP or TAB PO SCH (09:31)
[2019-12-26] MEDS: POTASSIUM CHL 10 Meq TABLET PO SCH ×2 (09:31→22:28)
[2019-12-26] MEDS: DexAMETHasone 4 MG TAB PO SCH (09:31)
[2019-12-26] MEDS: CARVEDILOL 12.5 MG TAB PO SCH ×2 (09:33→22:28)
[2019-12-26 13:02] VITALS: BP 98/63
--- NOTE | 2019-12-26 15:37 | NUR ---
Nutrition Assessment Notes Please refer to link for full assessment notes. Est Energy needs: [id number] kcals (17-20 kcal/kgBW) Est Protein needs: 60-91 gms/day (1.0-1.5 gm/kgIBW) Will continue to monitor and reassess prn. Addendum: 12/26/19 at [address] Amended: Links added.
[2019-12-26 17:00] VITALS: BP 129/83
[2019-12-26 18:35] VITALS: BP 129/83
--- NOTE | 2019-12-26 19:10 | NUR ---
Opening Shift Note Assumed care of patient, awake, alert and oriented x4, on 3L of oxygen via NC with even and unlabored respirations, no S/S of distress/SOB or pain. Patient able to ambulate independently, bed in lowest locked position, side rails up x2, call light within reach, and guards at bedside. Instructed on POC and to call for assist PRN, will continue to monitor for changes Q1hr and PRN.
[2019-12-26 22:00] VITALS: BP 137/85
[2019-12-27 05:00] VITALS: BP 128/70
--- NOTE | 2019-12-27 06:25 | NUR ---
Respiratory note: ASSESSED PT FOR PRN MEDNEB TX. HR 68, RR 20, SPO2 94% ON ROOM AIR. BREATH SOUNDS CLEAR/DIM. NO S/S OF DISTRESS. MEDNEB TX NOT INDICATED AT THIS TIME. WILL CONT TO MONITOR.
[2019-12-27] MEDS: FUROSEMIDE 20 MG/2 ML VIAL IV SCH ×2 (07:14→18:39)
[2019-12-27 08:00] VITALS: BP 121/53
[2019-12-27] MEDS: AZITHROMYCIN 250 MG TAB PO SCH (10:30)
[2019-12-27] MEDS: APIXABAN 2.5 MG TAB PO SCH ×2 (10:30→22:37)
[2019-12-27] MEDS: DexAMETHasone 4 MG TAB PO SCH (10:31)
[2019-12-27] MEDS: POTASSIUM CHL 10 Meq TABLET PO SCH ×2 (10:31→22:36)
[2019-12-27] MEDS: ZINC SULFATE 220mg CAP or TAB PO SCH (10:32)
[2019-12-27] MEDS: cefTRIAXone 1GM/50ML D5W 50 ML IV SCH (10:32)
[2019-12-27] MEDS: CARVEDILOL 12.5 MG TAB PO SCH ×2 (10:32→22:37)
[2019-12-27 12:00] VITALS: BP 120/78
[2019-12-27 17:03] VITALS: BP 140/79
--- NOTE | 2019-12-27 17:27 | NUR ---
MD at bedside MD Donaldson aware of patient's status new orders received for [place]. Cont care
[2019-12-27] MEDS: HYDROcodone-ACET 10/325MG TAB PO PRN ×2 (18:50→23:06)
--- NOTE | 2019-12-27 19:20 | NUR ---
OPENING NOTE Received report from day shift RN. Patient is A&O X's 4 with no s/s of distress and reports no pain. Patient is on 3L NC. He reports a cough with thick secretions. Educated patient on POC and to use call light when in need of any assistance. Patient verbalized understanding. Bed is in lowest/locked position with side rails up X's 2 and call light is within reach of patient. Guards present at bedside. Will continue care.
--- NOTE | 2019-12-27 21:28 | NUR ---
Respiratory note: ASSESSED PT FOR PRN MED NEB AT THIS TIME, NO DISTRESS NOTED, NO TX INDICATED. PULSE OX 93% ON 3LNC, HR 79, RR 18
[2019-12-27 22:00] VITALS: BP 123/96
[2019-12-28 05:00] VITALS: BP 116/80
[2019-12-28] MEDS: FUROSEMIDE 20 MG/2 ML VIAL IV SCH ×2 (06:14→18:28)
--- NOTE | 2019-12-28 07:25 | NUR ---
RT NOTE HR 73, RR 16, SPO2 94% ON RA, BS CLEAR. PRN MED NB TX NOT INDICATED. NO SIGNS OR SYMPTOMS OF RESPIRATORY DISTRESS NOTED AT THIS TIME.
[2019-12-28 08:00] VITALS: BP 104/73
--- NOTE | 2019-12-28 09:13 | NUR ---
Spoke to MD MD Willis aware of patient's status. No new orders received at this time. Cont care
[2019-12-28] MEDS: CARVEDILOL 12.5 MG TAB PO SCH ×2 (09:30→22:18)
[2019-12-28] MEDS: ZINC SULFATE 220mg CAP or TAB PO SCH (09:30)
[2019-12-28] MEDS: cefTRIAXone 1GM/50ML D5W 50 ML IV SCH (09:30)
[2019-12-28] MEDS: DexAMETHasone 4 MG TAB PO SCH (09:30)
[2019-12-28] MEDS: POTASSIUM CHL 10 Meq TABLET PO SCH ×2 (09:31→22:18)
[2019-12-28] MEDS: APIXABAN 2.5 MG TAB PO SCH ×2 (09:31→22:18)
[2019-12-28] MEDS: AZITHROMYCIN 250 MG TAB PO SCH (09:31)
[2019-12-28] MEDS: HYDROcodone-ACET 10/325MG TAB PO PRN ×2 (10:23→18:32)
[2019-12-28] MEDS: ASCORBIC ACID 500 MG TAB PO SCH ×2 (11:52→22:22)
[2019-12-28] MEDS: CHOLECALCIFEROL (VITD3) 2,000 UNIT CAP PO SCH (11:52)
[2019-12-28 12:00] VITALS: BP 103/72
[2019-12-28 17:00] VITALS: BP 122/77
--- NOTE | 2019-12-28 18:32 | NUR ---
Patient c/o pain, medicated with norco as ordered. Continued to encourage patient to turn and deep breath and use IS at bedside. Patient encouraged to prone pt verbalized understanding but continues to refuse. No acute distress or sob noted. Patient on 3l N/C.
--- NOTE | 2019-12-28 22:02 | NUR ---
Respiratory note: PT RECIEVED ON NC3L. PT IS AWAKE AND ALERT. NO RESP DISTRESS NOTED. PRN TX NOT INDICATED. SPO2 92%, HR 79, RR 20, BS DIMINISHED T/O. PT AWARE TO CALL FOR PRN TX IF SOB/WHEEZING.
[2019-12-28 22:11] VITALS: BP 110/74
[2019-12-29] MEDS: HYDROcodone-ACET 10/325MG TAB PO PRN ×3 (02:27→22:40)
[2019-12-29 05:16] VITALS: BP 115/69
[2019-12-29] MEDS: FUROSEMIDE 20 MG/2 ML VIAL IV SCH ×2 (06:31→17:33)
[2019-12-29 08:34] VITALS: BP 121/84
[2019-12-29] MEDS: AZITHROMYCIN 250 MG TAB PO SCH (10:07)
[2019-12-29] MEDS: POTASSIUM CHL 10 Meq TABLET PO SCH ×2 (10:07→22:34)
[2019-12-29] MEDS: APIXABAN 2.5 MG TAB PO SCH ×2 (10:07→22:34)
[2019-12-29] MEDS: cefTRIAXone 1GM/50ML D5W 50 ML IV SCH (10:07)
[2019-12-29] MEDS: ZINC SULFATE 220mg CAP or TAB PO SCH (10:07)
[2019-12-29] MEDS: ASCORBIC ACID 500 MG TAB PO SCH ×2 (10:08→22:34)
[2019-12-29] MEDS: CARVEDILOL 12.5 MG TAB PO SCH ×2 (10:08→22:34)
[2019-12-29] MEDS: DexAMETHasone 4 MG TAB PO SCH (10:08)
[2019-12-29] MEDS: CHOLECALCIFEROL (VITD3) 2,000 UNIT CAP PO SCH (12:14)
[2019-12-29 12:23] VITALS: BP 137/82
--- NOTE | 2019-12-29 12:55 | NUR ---
Nutrition Followup Notes Wt: 95.6 kg Pt`s in isolation for being COVID +ve. pt with no distress noted per nursing currently on regular diet with adequate Po of 100% x 4 per RN doc Est Energy needs ABW 85 [id number] kcals (23-25 kcal/kgABW), Est Protein needs: 85-93 gms/day (1.0-1.1 gm/kgABW). Will continue to monitor. Reassessed LABS: bun 30 h creat 1.33 h glu 133 h GI: Pt had 1 BM today per RN doc BS: 21 low risk. Refer to wound assessment report for full details. PES: 1) Obesity aeb 140% IBW and BMI of 33.5 kg/m2 r/t energy intake in excess of energy needs 2) Altered nutrition related lab values aeb elev RFTs, hyperglycemia, hypocalcemia, mod hypoalbuminemia r/t current medical condition Comments: Continue to monitor PO intake, labs, skin status. F/u mod 3-5 days Rec: 1) Refer pt to [facility] on DC. 2) Continue current plan of care
[2019-12-29 17:00] VITALS: BP_SYST 115; BP_SYST 123; BP_DIAS 71; BP_DIAS 80
[2019-12-29 22:00] VITALS: BP 114/83
[2019-12-30 05:00] VITALS: BP 125/88
[2019-12-30] MEDS: FUROSEMIDE 20 MG/2 ML VIAL IV SCH ×2 (06:43→18:00)
--- NOTE | 2019-12-30 07:30 | NUR ---
Opening Shift Note RECEIVED REPORT FROM NOC RN. Assumed care of patient, awake and alert. PATIENT ON OXYGEN AT 2 LPM VIA NASAL CANNULA WITH no S/S of distress/SOB or pain. BED IN LOWEST, LOCKED POSITION WITH SIDERAILS UP x2 AND CALL LIGHT WITHIN REACH AND GUARDS AT BEDSIDE. Instructed on POC and to call for assist PRN, will continue to monitor for changes Q1hr and PRN.
[2019-12-30 08:44] VITALS: BP 135/88
[2019-12-30] MEDS: CARVEDILOL 12.5 MG TAB PO SCH (10:11)
[2019-12-30] MEDS: cefTRIAXone 1GM/50ML D5W 50 ML IV SCH (10:11)
[2019-12-30] MEDS: ZINC SULFATE 220mg CAP or TAB PO SCH (10:11)
[2019-12-30] MEDS: DexAMETHasone 4 MG TAB PO SCH (10:11)
[2019-12-30] MEDS: ASCORBIC ACID 500 MG TAB PO SCH (10:12)
[2019-12-30] MEDS: CHOLECALCIFEROL (VITD3) 2,000 UNIT CAP PO SCH (10:12)
[2019-12-30] MEDS: APIXABAN 2.5 MG TAB PO SCH (10:12)
[2019-12-30] MEDS: POTASSIUM CHL 10 Meq TABLET PO SCH (10:12)
[2019-12-30] MEDS: AZITHROMYCIN 250 MG TAB PO SCH (10:12)
[2019-12-30 13:00] VITALS: BP 122/86
[2019-12-30] MEDS: HYDROcodone-ACET 10/325MG TAB PO PRN (14:55)
[2019-12-30] MEDS ORDERED: AZIT250T9 PO (16:51)
[2019-12-30] MEDS ORDERED: PRED20TA2 PO (16:51)
[2019-12-30 16:56] VITALS: BP 120/78
[2019-12-30 17:07] VITALS: BP 122/86
== END 2019-12-30 18:30 | DRG 177 ==
LOC: ER 10:51 → EDBD 10:51 → EEVIPCON 10:51 → OVERFLOW 10:52 → EAST 17:59
PROVIDERS: ADMIT Internal Medicine; ATTEND Internal Medicine
DX: U07.1 COVID-19 (principal); J96.01 Acute respiratory failure with hypoxia; J12.89 Other viral pneumonia; J98.11 Atelectasis; I42.9 Cardiomyopathy, unspecified; J44.0 Chronic obstructive pulmonary disease with (acute) lower respiratory infection; E78.5 Hyperlipidemia, unspecified; I11.0 Hypertensive heart disease with heart failure; I50.9 Heart failure, unspecified; N40.0 Benign prostatic hyperplasia without lower urinary tract symptoms; Z79.01 Long term (current) use of anticoagulants; Z79.51 Long term (current) use of inhaled steroids; Z80.9 Family history of malignant neoplasm, unspecified; Z95.810 Presence of automatic (implantable) cardiac defibrillator
CPT/HCPCS: 36415; 36600; 71045; 80048; 80053; 81001; 82728; 82805; 83605; 83615; 83735; 83880; 84484; 85007; 85027; 85379; 85610; 85730; 86141; 87040; 87081; 93005; 93970; 94762; 96365; 96375; 99291; G0378; J0696; J1100; J2405

== ENCOUNTER → 2020-10-03 | Outpatient (CLI) | payer OTHER ==
[~2020-10-03] MED LIST changes: +AZIT250T9 PO; +IOHEXOL 180 MG/ML 20ML VIAL IJ ONE; +LIDOCAINE 2%HCL (LOCAL ANESTH.) INJ 20ML MDV ONE; +PRED20TA2 PO
[2020-10-03 09:49] LABS: Basophils # (auto) 0.1 10 ^3/uL (0-0.2); Basophils % (auto) 1.5 % (0.0-2.0); Eosinophils # (auto) 0.1 10 ^3/uL (0-0.8); Eosinophils % (auto) 1.7 % (0.0-7.0); Hematocrit 42.3 % (41.0-53.0); Hemoglobin 14.3 g/dL (13.5-17.5); Lymphocytes # (auto) 1.2 10 ^3/uL (0.4-5.4); Lymphocytes % (auto) 34.4 % (10.0-50.0); Mean Corpuscular Hemoglobin 32.5 pg (28.0-32.0); Mean Corpuscular Hgb Conc. 33.9 g/dL (32.0-36.0); Mean Corpuscular Volume 95.9 fL (80.0-100.0); Monocytes # (auto) 0.4 10 ^3/uL (0-1.3); Monocytes % (auto) 11.7 % (0.0-12.0); Neutrophils # (auto) 1.8 10 ^3/uL (1.6-8.6); Neutrophils % (auto) 50.7 % (37.0-80.0); Nucleated Red Blood Cells % 0.3 %; Platelet Count (auto) 216 10^3/uL (140-450); Red Blood Cells 4.41 10^6/uL (4.5-5.90); White Blood Cell 3.5 10^3/uL (4.4-10.8)
[2020-10-03 10:38] LABS: INR 1.03 (0.9-1.15); Partial Thromboplastin Time 31.2 sec (23.0-31.2)
== END | disposition home or self-care (01) ==
LOC: XYW 08:58
PROVIDERS: ATTEND Internal Medicine
DX: M43.22 Fusion of spine, cervical region (principal); G89.29 Other chronic pain; I11.0 Hypertensive heart disease with heart failure; I25.810 Atherosclerosis of coronary artery bypass graft(s) without angina pectoris; J44.9 Chronic obstructive pulmonary disease, unspecified; Z98.890 Other specified postprocedural states; Z79.899 Other long term (current) drug therapy
CPT/HCPCS: 36415; 62302; 62328; 72125; 77012; 85025; 85610; 85730; 93530; Q9965; 0238T; 10022